=== PATIENT | female | born 1985 | race Two or more races ===

== ENCOUNTER 2017-11-27 06:23 | Emergency (ER) | payer BC, OTHER ==
[2017-11-27 06:46] VITALS: BMI 26.6
--- NOTE | 2017-11-27 07:12 | PDOC ---
Attending Attestation - HPI HPI: 11/27/17 08:10 The patient is a 32 year old female, with a significant past medical history of low platelet counts (during ), who presents to the emergency department with a laceration on her right thumb. She reports that she was cutting up vegetabes yesterday when she sliced a piece of her thumb. She reports bleeding immediately afterwards and notes that she wrapped it right away. She states that this incident occured 12 hours ago, for which she opted to not come to the ED because she thought nothing could be done for her at the time. - Physicial Exam PE: 11/27/17 08:11 GENERAL: Awake, alert, and fully oriented, in no acute distress HEAD: No signs of trauma, normocephalic, atraumatic ABDOMEN: Soft, nontender, normoactive bowel sounds. No guarding, no rebound. No masses EXTREMITIES : (+)Right hand dominante with ovulsion of the distal thumb, no active bleeding until the scab was pulled off, small ooze afterwards. Sensation intact. Normal range of motion, no edema. No clubbing or cyanosis. NEUROLOGICAL: Cranial nerves II through XII grossly intact. Normal speech, no focal sensorimotor deficits SKIN: Warm, Dry, normal turgor, no rashes or lesions noted. <Artemio Sullivan - Last Filed: 11/27/17 08:10> - Resident Resident Name: Kedar Sánchez - ED Attending Attestation I have performed the following: I have examined & evaluated the patient, The case was reviewed & discussed with the resident, I agree w/resident's findings & plan, Exceptions are as noted - Medical Decision Making 11/27/17 07:12 I, Dr. Anna Parra, DO, attest that this document has been prepared under my direction and personally reviewed by me in its entirety. I further attest, that it accurately reflects all work, treatment, procedures and medical decision -making performed by me. 11/27/17 08:13 a/p: 32yo female with R thumb avulsion of skin at tip of finger -local wound car -unable to suture given avulsion of skin -telfa dressing applied after applying surgicell to the skin -bleeding controlled -dressing applied -tetanus UTD -discussed wound check in 2 days -discussed abx for finger injury -stable for d/c to home. <Anna Parra - Last Filed: 11/27/17 08:18> Discharge Disposition - Discharge Dispostion Admit: No <Anna Parra - Last Filed: 11/27/17 08:18> - Diagnosis Avulsion, finger tip - Discharge Dispostion Disposition: HOME Condition at time of disposition: Stable - Prescriptions Prescriptions: Acetaminophen W/ Codeine #3 [Tylenol # 3 -] 1 tab PO HS PRN #5 tablet MDD 1 PRN Reason: Pain Acetaminophen W/ Codeine #3 [Tylenol # 3 -] 1 tab PO Q6H PRN #5 tablet MDD 2 tabs daily PRN Reason: Pain Cephalexin [Keflex] 500 mg PO QID #20 capsule - Referrals Referrals: Susan Howard MD [Primary Care Provider] - - Patient Instructions Printed Discharge Instructions: DI for Avulsion Laceration (Not Requiring Sutures) Additional Instructions: Please keep the wound clean and dry. Please have the wound evaluated in 2 days. Please change the dressing twice a day. Please return to the ED with any further complaints. Please follow up with the hand physician. Please also follow up with your PMD. - Post Discharge Activity
--- NOTE | 2017-11-27 07:16 | PDOC ---
History of Present Illness - General Chief Complaint: Injury Stated Complaint: INJURY Time Seen by Provider: 11/27/17 07:05 - History of Present Illness Initial Comments: 11/27/17 07:16 Pt is a 32 y/o F who had a "platelet problem" during her recent who presents to ED with a laceration of her right thumb. Pt cut her finger on a vegetable slicer. States there was roughly 1/2 cup of blood and intense pain. Her who is an EMT wrapped the thumb, and bleeding was controlled by the time she arrived in the hospital. Past History - Past Medical History Allergies/Adverse Reactions: Allergies Allergy/AdvReac Type Severity Reaction Status Date / Time No Known Allergies Allergy Verified 11/27/17 06:57 Home Medications: Ambulatory Orders Acetaminophen W/ Codeine #3 [Tylenol # 3 -] 1 tab PO HS PRN #5 tablet MDD 1 Cephalexin [Keflex] 500 mg PO QID #20 capsule 11/27/17 Paroxetine HCl [Paxil] 40 mg PO DAILY 11/27/17 COPD: No - Surgical History Appendectomy: Yes - Suicide/Smoking/Psychosocial Hx Smoking History: Never smoked Have you smoked in the past 12 months: No Hx Alcohol Use: No Drug/Substance Use Hx: No Substance Use Type: None Review of Systems - Review of Systems Able to Perform ROS?: Yes Is the patient limited Tristanian proficient: No Constitutional: Yes: Symptoms Reported. No: Chills, Diaphoresis, Fever HEENTM: Yes: Symptoms Reported. No: Blurred Vision Respiratory: Yes: Symptoms reported. No: Cough Cardiac (ROS): Yes: Symptoms Reported. No: Chest Pain ABD/GI: Yes: Symptoms Reported. No: Abdominal Distended, Constipated, Diarrhea : Yes: Symptoms Reported. No: Burning, Dysuria *Physical Exam - Vital Signs Last Vital Signs Temp Pulse Resp BP Pulse Ox 97.8 F 64 15 108/58 100 11/27/17 06:37 11/27/17 06:37 11/27/17 06:37 11/27/17 06:37 11/27/17 06:37 - Physical Exam Extremity: positive: Tender, Other (avulsion Right distal thumb. neurovasc intact. no ROM limitation) Medical Decision Making - Medical Decision Making 11/27/17 07:28 Pt is a 32 y/o F who presented to ED with a right distal thumb laceration. No neurovasc deficit. Surgiseal placed. Wound was cleaned and dressed. Keflex x 5d Pt instructed to keep hand elevated, keep wound clean and dry, change dressing bid *DC/Admit/Observation/Transfer Diagnosis at time of Disposition: Laceration - Discharge Dispostion Disposition: HOME Admit: No - Prescriptions Prescriptions: Acetaminophen W/ Codeine #3 [Tylenol # 3 -] 1 tab PO HS PRN #5 tablet MDD 1 PRN Reason: Pain Cephalexin [Keflex] 500 mg PO QID #20 capsule - Referrals Referrals: Susan Howard MD [Primary Care Provider] - - Patient Instructions Additional Instructions: Keep the dressing clean and dry. Keep the injured thumb elevated. Follow up with your primary care doctor within 2 days. If you develop new symptoms like bleeding, please return to the emergency department. - Post Discharge Activity
[2017-11-27] MEDS ORDERED: ACETAMINOPHEN 500 MG TABLET (FP) PO ONE (07:27)
[2017-11-27] MEDS ORDERED: ACETAMINOPHEN 500 MG TABLET (FP) ONE (07:42)
[2017-11-27] MEDS ORDERED: LIDOCAINE HCL 1%, 10 MG/ML (50 mL VIAL) SQ ONE (07:45)
[2017-11-27] MEDS ORDERED: LIDOCAINE HCL 1%, 10 MG/ML (20ML VIAL) ONE (07:46)
[2017-11-27 08:38] VITALS: BP 110/55; PULSE 79; TEMP 98.1
== END 2017-11-27 08:38 | disposition home or self-care (01) ==
LOC: JER 06:23
PROC: 0HQFXZZ Repair Right Hand Skin, External Approach (ICD-10-PCS; principal; 2017-11-27)
DX: S61.011A Laceration without foreign body of right thumb without damage to nail, initial encounter (principal); W27.4XXA Contact with kitchen utensil, initial encounter; Y93.G1 Activity, food preparation and clean up; Y92.010 Kitchen of single-family (private) house as the place of occurrence of the external cause; Y99.8 Other external cause status
CPT/HCPCS: 99282-25